=== PATIENT | female | born 1960 ===

== ENCOUNTER 2016-11-18 01:51 | Emergency (ER) | payer MEDICAID ==
[2016-11-18 01:58] VITALS: TEMP 98.4
--- NOTE | 2016-11-18 02:18 | ED PDOC ---
HPI: Hypertension/Hypotension Chief Complaint (Provider): High Blood Pressure History Per: Patient History/Exam Limitations: no limitations Onset/Duration Of Symptoms: Hrs (1 hour) Current Symptoms Are (Timing): Better Associated Symptoms: Dizziness, Other (palpitations lasting "few seconds"). denies: Chest Pain, Dyspnea (described as being lightheaded) Severity: None Exacerbating Factor(s): Pos: None Additional Complaint(s): Pt. here today complaining of HTN. PtTierney andrade was diagnosed with HTN 1 week ago by her PMD Dr. Dotson and was started on Metoprolol ER 25mg once daily which she took this morning. PtTierney andrade was watching television at 1:00am at home and felt lightheaded for a few seconds with palpitations. Pt. raymond then took her blood pressure and it was elevated at home with a reading of 185 systolic. Pt. subsequently woke up and called EMS and was transported to [facility]. Pt. at this time raymond feels better and lightheadedness has resolved but feels her blood pressure is still elevated. Pt. does report eating a salty tuna salad at 4p.m. <Sotero Mendoza - Last Filed: 11/18/16 03:06> <Shant Frazier - Last Filed: 11/18/16 05:28> Time Seen by Provider: 11/18/16 01:58 Chief Complaint (Nursing): High Blood Pressure Supervising Attending Note - Attestation: I have personally seen and examined this patient.: Yes I have fully participated in the care of the patient.: Yes I have reviewed all pertinent clinical information, including history, physical exam and plan: Yes <Shant Frazier - Last Filed: 11/18/16 05:28> Past Medical History Vital Signs: Last Vital Signs Temp 98.4 F 11/18/16 01:56 Pulse 74 11/18/16 01:56 Resp 20 11/18/16 01:56 BP 161/88 H 11/18/16 01:56 Pulse Ox 100 11/18/16 01:56 - Medical History PMH: HTN - Surgical History Surgical History: Appendectomy, - Family History Family History: States: CAD (Father ) - Living Arrangements Living Arrangements: Other (with ) - Social History Current smoker - smoking cessation education provided: No Alcohol: None Drugs: Denies <Sotero Mendoza - Last Filed: 11/18/16 03:06> Vital Signs: Last Vital Signs Temp 98.4 F 11/18/16 01:56 Pulse 71 11/18/16 03:06 Resp 14 11/18/16 03:02 BP 142/85 11/18/16 03:02 Pulse Ox 100 11/18/16 03:06 <Shant Frazier - Last Filed: 11/18/16 05:28> - Home Medications Home Medications: Ambulatory Orders Medication Instructions Recorded Metoprolol Succinate 11/18/16 - Allergies Allergies/Adverse Reactions: Allergies Allergy/AdvReac Type Severity Reaction Status Date / Time No Known Allergies Allergy Verified 05/29/14 08:37 Review of Systems Constitutional: Negative for: Fever, Chills Eyes: Negative for: Pain, Vision Change ENT: Negative for: Ear Pain, Ear Discharge Cardiovascular: Positive for: Palpitations, Light Headedness. Negative for: Chest Pain, Orthopnea, Paroxysmal Noc. Dyspnea, Edema Respiratory: Negative for: Cough, Shortness of Breath, Hemoptysis Gastrointestinal: Negative for: Nausea, Vomiting, Abdominal Pain Musculoskeletal: Negative for: Neck Pain, Shoulder Pain, Arm Pain Skin: Negative for: Rash, Lesions Neurological: Negative for: Weakness, Numbness, Incoordination, Change in Speech Psych: Negative for: Anxiety, Depression <Sotero Mendoza - Last Filed: 11/18/16 03:06> Physical Exam - Reviewed Vital Signs Reviewed: Yes - Physical Exam Appears: Positive for: Non-toxic, No Acute Distress Head Exam: Positive for: ATRAUMATIC, NORMOCEPHALIC Skin: Positive for: Normal Color, Warm, Dry Neck: Positive for: Normal, Supple Cardiovascular/Chest: Positive for: Regular Rate, Rhythm, Edema (Trace). Negative for: Murmur Respiratory: Positive for: Normal Breath Sounds. Negative for: Rales, Wheezing Gastrointestinal/Abdominal: Positive for: Soft. Negative for: Tenderness Extremity: Positive for: Capillary Refill (2 seconds). Negative for: Calf Tenderness Neurologic/Psych: Positive for: Alert, frame stripper II-XII, Oriented <Mendoza,Sotero - Last Filed: 11/18/16 03:06> - ECG ECG: Positive for: Interpreted By Me (Discussed with Dr. Frazier ) ECG Rhythm: Positive for: Sinus Rhythm Interpretation Of Abn EKG: Sinur Rhythm with non-prominent U-waves unchanged from previous EKG in July Rate: 71 O2 Sat by Pulse Oximetry: 100 - Progress ED Course And Treament: 55 y.o. female with HTN diagnosed 1 week ago with no acute changes on the EKG having took Metoprolol ER 25mg before arrival with no complaints of chest pain or short of breath with improving HTN on repeat BP reading. BP reading at 3:00 a.m. 142/85 with a HR of 65. Re-evaluation Time: 03:00 Condition: Improved <Sotero Mendoza - Last Filed: 11/18/16 03:06> Medical Decision Making Medical Decision Makin y.o. female with newly diagnosed HTN reports feeling lightheaded lasting a few seconds with a home blood pressure reading of 185 1 hour before arrival now resolved with no acute changes on EKG when compared to previous EKG. <Sotero Mendoza - Last Filed: 11/18/16 03:06> Disposition - Patient ED Disposition Is Patient to be Admitted: No Discussed With DrTierney: Shant Frazier - Disposition Disposition: Routine/Home Disposition Time: 03:05 <Sotero Mendoza - Last Filed: 11/18/16 03:06> <Shant Frazier - Last Filed: 11/18/16 05:28> - Clinical Impression Clinical Impression: Hypertension - Disposition Referrals: Bryanna Chacon DO [Family Provider] - Condition: FAIR Instructions: Hypertension (ED)
[2016-11-18 03:03] VITALS: BP 142/85; RESP 14
[2016-11-18 03:05] VITALS: PULSE 71; O2SAT 100
--- NOTE | 2016-11-19 10:29 | CARD ---
APPROVED REPORT EKG Measurement Heart [id number] ID [id number] <Conclusion> Normal sinus rhythm Nonspecific ST and T wave abnormality Abnormal ECG
== END 2016-11-18 03:40 | disposition home or self-care (01) ==
LOC: H.ER 01:51
DX: I10 Essential (primary) hypertension (principal)

== ENCOUNTER 2017-01-21 00:27 | Emergency (ER) | payer MEDICAID ==
[2017-01-21 01:02] VITALS: RESP 16; TEMP 98.6; O2SAT 99
--- NOTE | 2017-01-21 01:29 | ED PDOC ---
HPI: General Adult Time Seen by Provider: 01/21/17 00:50 Chief Complaint (Nursing): Dizziness/Lightheaded Chief Complaint (Provider): dizziness History Per: Patient History/Exam Limitations: no limitations Onset/Duration Of Symptoms: Mins Have you had recent travel within the past 21 days to any of the following countries: [place], [place], [place] or [place]?: No Current Symptoms Are (Timing): Better Additional Complaint(s): 56yo female with PMHx including HTN (takes Metoprolol 25mg once daily but missed dose this morning) presents to the ED with c/o dizziness and left arm feeling "awkward." Patient states she noticed her bp to be in the 150s systolic and panicked. At present patient feels better but still a little dizzy. Denies abdominal pain, SOB, chest pain, fever, chills. Past Medical History Reviewed: Historical Data, Nursing Documentation, Vital Signs Vital Signs: Last Vital Signs Temp 98.6 F 01/21/17 00:54 Pulse 55 L 01/21/17 01:46 Resp 16 01/21/17 00:54 BP 134/84 01/21/17 01:46 Pulse Ox 99 01/21/17 03:04 - Medical History PMH: HTN - Surgical History Surgical History: Appendectomy, Cholecystectomy, - Family History Family History: States: CAD (Father ) - Social History Current smoker - smoking cessation education provided: No Alcohol: None Drugs: Denies - Home Medications Home Medications: Ambulatory Orders Medication Instructions Recorded Metoprolol Succinate 11/18/16 - Allergies Allergies/Adverse Reactions: Allergies Allergy/AdvReac Type Severity Reaction Status Date / Time No Known Allergies Allergy Verified 05/29/14 08:37 Review of Systems ROS Statement: Except As Marked, All Systems Reviewed And Found Negative Constitutional: Negative for: Fever, Chills Cardiovascular: Negative for: Chest Pain Respiratory: Negative for: Shortness of Breath Gastrointestinal: Negative for: Abdominal Pain Musculoskeletal: Positive for: Other (left arm feeling "awkward" ) Neurological: Positive for: Dizziness Physical Exam - Reviewed Nursing Documentation Reviewed: Yes Vital Signs Reviewed: Yes - Physical Exam Appears: Positive for: Well, No Acute Distress Head Exam: Positive for: ATRAUMATIC, NORMAL INSPECTION, NORMOCEPHALIC Skin: Positive for: Normal Color, Warm, Dry ENT: Positive for: Normal ENT Inspection Neck: Positive for: Normal, Painless ROM, Supple Cardiovascular/Chest: Positive for: Regular Rate, Rhythm. Negative for: Murmur , Tachycardia Respiratory: Positive for: Normal Breath Sounds. Negative for: Wheezing, Respiratory Distress Gastrointestinal/Abdominal: Positive for: Normal Exam, Soft. Negative for: Tenderness Back: Positive for: Normal Inspection. Negative for: L CVA Tenderness, R CVA Tenderness Extremity: Positive for: Normal ROM. Negative for: Deformity, Swelling Neurologic/Psych: Positive for: Alert, sales floor team leader II-XII (intact ), Oriented. Negative for: Motor/Sensory Deficits, Aphasia, Facial Droop - Laboratory Results Result Diagrams: 01/21/17 01:30 01/21/17 01:30 - ECG ECG: Positive for: Interpreted By Me, Viewed By Me ECG Rhythm: Positive for: Sinus Bradycardia (at 51 bpm, no ST elevation ) O2 Sat by Pulse Oximetry: 99 Pulse Ox Interpretation: Normal (RA) Medical Decision Making Medical Decision Makin: Impression: dizziness rule out STEMI, rule out intracrail pathology Plan: CT head Labs EKG reassess 0249: CT head impression: 1. No acute intracranial abnormality. 0258: Labs reviewed, WNL. BP has improved. Patient stable for d/c. Advised to follow up with her primary doctor tomorrow and return to the ED with any worsening or concerning symptoms. Dx is dizziness and HTN. Scribe Attestation: Documented by Nils Medina acting as a scribe for Maida Paredes MD. Provider Scribe Attestation: All medical record entries made by the Scribe were at my direction and personally dictated by me. I have reviewed the chart and agree that the record accurately reflects my personal performance of the history, physical exam, medical decision making, and the department course for this patient. I have also personally directed, reviewed, and agree with the discharge instructions and disposition. Disposition - Clinical Impression Clinical Impression: Dizziness, Hypertension - Patient ED Disposition Is Patient to be Admitted: No Counseled Patient/Family Regarding: Studies Performed, Diagnosis, Need For Followup - Disposition Referrals: Bryanna Chacon DO [Primary Care Provider] - Disposition: Routine/Home Disposition Time: 02:45 Condition: IMPROVED Additional Instructions: follow up with your primary doctor tomorrow return to the ED with any worsening or concerning symptoms Instructions: Hypertension (ED), Dizziness (ED)
[2017-01-21 01:46] LABS: BASO # 0.1 K/uL (0.0-0.2); BASO % 0.6 % (0.0-2.0); EOS # 0.2 K/uL (0.0-0.7); HEMATOCRIT 38.5 % (34.0-47.0); LYMPH # 3.3 K/uL (1.0-4.3); LYMPH % 37.2 % (20.0-40.0); MEAN CELL VOLUME 87.9 fl (81.0-99.0); MEAN CORPUSCULAR HEMOGLOBIN 29.7 pg (27.0-31.0); MEAN CORPUSCULAR HGB CONC 33.8 g/dL (33.0-37.0); MONO # 0.6 K/uL (0.0-0.8); MONO % 7.3 % (0.0-10.0); NEUT # 4.7 K/uL (1.8-7.0); NEUT % 52.9 % (50.0-75.0); NRBC % 0.1 % (0.0-0.0); RED CELL DISTRIBUTION WIDTH 13.9 % (11.5-14.5); WHITE BLOOD COUNT 8.9 K/uL (4.8-10.8)
[2017-01-21 01:47] VITALS: BP 134/84; PULSE 55
[2017-01-21 01:57] LABS: ALB/GLOB RATIO 1.3 (1.0-2.1); ALKALINE PHOSPHATASE 109 U/L (38-126); ALT/SGPT 41 U/L (9-52); AST/SGOT 24 U/L (14-36); BILIRUBIN,TOTAL 0.3 mg/dl (0.2-1.3); BLOOD UREA NITROGEN 12 mg/dl (7-17); CALCIUM 9.1 mg/dL (8.4-10.2); CARBON DIOXIDE 28 mmol/L (22-30); CHLORIDE 107 mmol/L (98-107); GFR AFRICAN-AMERICAN > 60; GLUCOSE,RANDOM 103 mg/dL (65-105); POTASSIUM 3.9 MMOL/L (3.6-5.0); SODIUM 144 mmol/l (132-148); TOTAL PROTEIN 7.6 G/DL (6.3-8.2)
--- NOTE | 2017-01-21 02:49 | CT ---
EXAM: CT Head Without Intravenous Contrast CLINICAL HISTORY: 56 years old, female; Pain; Headache TECHNIQUE: Axial computed tomography images of the head/brain without intravenous contrast. This CT exam was performed using one or more of the following dose reduction techniques: automated exposure control, adjustment of the mA and/or kV according to patient size, and/or use of iterative reconstruction technique. Coronal and sagittal reformatted images were created and reviewed. COMPARISON: Brain: Mild atrophy. FINDINGS: Brain: No intracranial hemorrhage. No mass. No definite edema. Ventricles: No hydrocephalus. Bones/joints: No acute fracture. Soft tissues: Unremarkable. Sinuses: No acute sinusitis. Mastoid air cells: No mastoid effusion. Orbits: Unremarkable as visualized. IMPRESSION: 1. No acute intracranial abnormality. 2. Incidental/non-acute findings are described above.
--- NOTE | 2017-01-21 19:21 | CARD ---
APPROVED REPORT EKG Measurement Heart [id number] <Conclusion> Sinus bradycardia Nonspecific ST abnormality Abnormal ECG
== END 2017-01-21 03:20 | disposition home or self-care (01) ==
LOC: H.ER 00:27
DX: R42 Dizziness and giddiness (principal); I10 Essential (primary) hypertension

== ENCOUNTER 2017-10-21 10:11 | Inpatient (IN) | payer MEDICAID ==
[2017-10-21 10:15] VITALS: BMI 29.0
[2017-10-21] MEDS ORDERED: Sodium Chloride 0.9% 1,000 ML IV SCH (11:00)
--- NOTE | 2017-10-21 11:01 | ED PDOC ---
HPI:STROKE - Time Time: 10:58 - Historian Historian: Patient - Onset Date: 10/21/17 Time: 09:00 - Notes: Notes:: Pt states she was at doctor's office with Mother when she began to feel lightheadedness, pressure in epigastrium, SOB, nausea and weakness in L arm and L leg, tried to walk around to feel better, able to ambulate. Denies GARNICA, visual changes, CP. NIHSS Stroke Scale - Date/Time Evaluation Performed Date Performed: 10/21/17 Time Performed: 10:55 When Was NIHSS Performed: Code Stroke - How Severe is the Stroke Level of Consciousness: 0=Alert LOC to Questions: 0=Both comments correct LOC to commands: 0=Obeys both correctly Best Gaze: 0=Normal Visual: 0=No visual loss Facial: 0=Normal Motor Arm - Left: 0=No drift Motor Arm - Right: 0=No drift Motor Leg - Left: 0=No drift Motor Leg - Right: 0=No drift Limb Ataxia: 0=Absent Sensory: 1=Mild to moderate loss Best Language: 0=No aphasia Dysarthia: 0=Normal articulation Extinction & Inattention (Neglect): 0=Normal, no object Score: 1 rTPA Inclusion/Exclusion - Refusal of Treatment Patient Refused Treatment: No - Inclusion Criteria for Altepase Patient is 18 years or Older: Yes The Clinical Diagnosis of Ischemic Stroke That is Causing a Potentially Disabling Neurological Deficit: Yes Time of Onset is Well Established to be Less Than 270 Minute Before Treatment Would Begin: Yes Risk/Benefit Discussed With Patient/Family Member Present: Yes - Exclusion Criteria for Altepase Uncontrolled Hypertension at Time of Treatment (Systolic BP above 185 or Diastolic BP above 110 mmHg): No Active Internal Bleeding: No Evidence of an Intracranial Hemorrhage: No Evidence of Major Acute Infarct With Signs Greater Than 1/3 MCA Territory: No Suspicion of Subarachnoid Hemorrhage on Pretreatment Evaluation Even if CT Head Negative For Hemorrhage: No - Warning to TPA With Conditions Following Conditions Weighed Against Anticipated Benefit: No Past Medical History Reviewed: Nursing Documentation, Vital Signs Vital Signs: Last Vital Signs Temp 98.1 F 10/21/17 10:15 Pulse 84 10/21/17 10:15 Resp 17 10/21/17 10:15 BP 165/93 H 10/21/17 10:15 Pulse Ox 100 10/21/17 10:15 - Medical History PMH: HTN - Surgical History Surgical History: Appendectomy, Cholecystectomy, - Family History Family History: States: Unknown Family Hx, CAD (Father ) - Social History Current smoker - smoking cessation education provided: No Alcohol: None - Home Medications Home Medications: Ambulatory Orders Medication Instructions Recorded Losartan/Hydrochlorothiazide 1 tab PO DAILY 10/21/17 [Losartan-Hctz 50-12.5 mg Tab] - Allergies Allergies/Adverse Reactions: Allergies Allergy/AdvReac Type Severity Reaction Status Date / Time No Known Allergies Allergy Verified 05/29/14 08:37 Review of Systems Constitutional: Negative for: Fever, Chills Eyes: Negative for: Vision Change Cardiovascular: Negative for: Chest Pain, Palpitations Respiratory: Positive for: Shortness of Breath. Negative for: Cough Gastrointestinal: Positive for: Nausea, Abdominal Pain. Negative for: Vomiting , Diarrhea Genitourinary Female: Negative for: Dysuria, Hematuria Musculoskeletal: Negative for: Neck Pain, Back Pain Skin: Negative for: Rash Neurological: Positive for: Weakness, Dizziness. Negative for: Numbness, Incoordination, Change in Speech, Confusion, Seizures, Altered Mental Status, Headache Physical Exam - Reviewed Nursing Documentation Reviewed: Yes Vital Signs Reviewed: Yes - Physical Exam Appears: Positive for: Well, No Acute Distress Head Exam: Positive for: ATRAUMATIC, NORMAL INSPECTION Skin: Positive for: Normal Color, Warm, Dry Eye Exam: Positive for: Normal appearance, EOMI, PERRL Neck: Positive for: Normal, Painless ROM, Supple Cardiovascular/Chest: Positive for: Regular Rate, Rhythm Respiratory: Positive for: Normal Breath Sounds. Negative for: Rales, Rhonchi, Wheezing Gastrointestinal/Abdominal: Positive for: Normal Exam, Bowel Sounds, Soft. Negative for: Tenderness Extremity: Positive for: Normal ROM Neurologic/Psych: Positive for: Alert, commercial lending assistant II-XII, Oriented, Cerebellar Tests ( WNL). Negative for: Motor/Sensory Deficits, Aphasia, Facial Droop - Laboratory Results Result Diagrams: 10/21/17 11:35 10/21/17 11:35 - ECG Interpretation Of ECG: NSR @ 65, no ST-T changes. O2 Sat by Pulse Oximetry: 100 Pulse Ox Interpretation: Normal - Radiology X-Ray: Interpreted by Fl X-Ray Interpretation: No Acute Disease - Core Measure Core Measure Indicators: Code Stroke - Critical Care Total Time (In Min): 60 Medical Decision Making Medical Decision Makin yo female with lightheadedness and L sided weakness. - code stroke - labs - EKG - CXR - CT head 11:15 [address] head report from Dr. Aldrich. Accession No. : [id number] Patient Name / ID : SILVANA KNUTSON / [id number] Exam Date : 10/21/2017 11:00:55 ( Approved ) Study Comment : Sex / Age : F / 56Y Creator : Andrea Jade MD Dictator : Andrea Jade MD Toll Test Worker : Conduit Helper : Andrea Jade MD Approver2 : Report Date : 10/21/2017 11:16:27 My Comment : PROCEDURE: CT HEAD WITHOUT CONTRAST. HISTORY: code stroke COMPARISON: Unenhanced head CT 01/21/2017 TECHNIQUE: Axial computed tomography images were obtained through the head/brain without intravenous contrast. Radiation dose: Total exam DLP = 885.55 mGy-cm. This CT exam was performed using one or more of the following dose reduction techniques: Automated exposure control, adjustment of the mA and/or kV according to patient size, and/or use of iterative reconstruction technique. FINDINGS: HEMORRHAGE: No intracranial hemorrhage. BRAIN: Normal merino-white matter differentiation and density are appreciated throughout the cerebrum and cerebellum with the brainstem appearing unremarkable as well. There is no mass effect. There is no suspicious extra-axial fluid collection and the midline brain anatomy appears diffusely unremarkable. VENTRICLES: Unremarkable. No hydrocephalus. CALVARIUM: Unremarkable. PARANASAL SINUSES: Unremarkable as visualized. No significant inflammatory changes. MASTOID AIR CELLS: Unremarkable as visualized. No inflammatory changes. OTHER FINDINGS: None. IMPRESSION: Unremarkable unenhanced head CT without significant interval change greater prior CT 01/21/2017. Follow up CT or MRI are available as clinically warranted. 11:[address] Herrera via telemonitor. 11:50 tPA administered. Disposition - Clinical Impression Clinical Impression: CVA (cerebral vascular accident), Received intravenous tissue plasminogen activator (tPA) in emergency department - Patient ED Disposition Is Patient to be Admitted: Yes - Disposition Disposition Time: 12:18 Condition: SERIOUS Forms: [facility] (Irish) - Pt Status Changed To: Hospital Disposition Of: Inpatient - Admit Certification Admit to Inpatient:: After my assessment, the patient will require hospitalization for at least two midnights. This is because of the severity of symptoms shown, intensity of services needed, and/or the medical risk in this patient being treated as an outpatient. - POA Present On Arrival: None
--- NOTE | 2017-10-21 11:18 | CT ---
PROCEDURE: CT HEAD WITHOUT CONTRAST. HISTORY: code stroke COMPARISON: Unenhanced head CT 01/21/2017 TECHNIQUE: Axial computed tomography images were obtained through the head/brain without intravenous contrast. Radiation dose: Total exam DLP = 885.55 mGy-cm. This CT exam was performed using one or more of the following dose reduction techniques: Automated exposure control, adjustment of the mA and/or kV according to patient size, and/or use of iterative reconstruction technique. FINDINGS: HEMORRHAGE: No intracranial hemorrhage. BRAIN: Normal merino-white matter differentiation and density are appreciated throughout the cerebrum and cerebellum with the brainstem appearing unremarkable as well. There is no mass effect. There is no suspicious extra-axial fluid collection and the midline brain anatomy appears diffusely unremarkable. VENTRICLES: Unremarkable. No hydrocephalus. CALVARIUM: Unremarkable. PARANASAL SINUSES: Unremarkable as visualized. No significant inflammatory changes. MASTOID AIR CELLS: Unremarkable as visualized. No inflammatory changes. OTHER FINDINGS: None. IMPRESSION: Unremarkable unenhanced head CT without significant interval change greater prior CT 01/21/2017. Follow up CT or MRI are available as clinically warranted.
[2017-10-21 11:39] LABS: BASO % 0.4 % (0.0-2.0); EOS # 0.1 K/uL (0.0-0.7); EOS % 1.3 % (0.0-4.0); HEMOGLOBIN 13.3 g/dL (12.0-16.0); LYMPH # 3.5 K/uL (1.0-4.3); LYMPH % 42.4 % (20.0-40.0); MEAN CELL VOLUME 89.7 fl (81.0-99.0); MEAN CORPUSCULAR HEMOGLOBIN 30.4 pg (27.0-31.0); MEAN CORPUSCULAR HGB CONC 33.8 g/dL (33.0-37.0); MEAN PLATELET VOLUME 6.7 fl (7.2-11.7); MONO # 0.5 K/uL (0.0-0.8); MONO % 5.5 % (0.0-10.0); NEUT # 4.2 K/uL (1.8-7.0); NEUT % 50.4 % (50.0-75.0); NRBC % 0.1 % (0.0-0.0); RBC 4.39 Mil/uL (3.80-5.20); WHITE BLOOD COUNT 8.2 K/uL (4.8-10.8)
[2017-10-21 11:52] LABS: ALB/GLOB RATIO 1.2 (1.0-2.1); ALBUMIN 4.4 g/dL (3.5-5.0); ALT/SGPT 39 U/L (9-52); AST/SGOT 26 U/L (14-36); BLOOD UREA NITROGEN 19 mg/dl (7-17); CALCIUM 9.6 mg/dL (8.4-10.2); GFR AFRICAN-AMERICAN > 60; GFR NON-AFRICAN AMERICAN > 60; HDL CHOLESTEROL 56 MG/DL (30-70)
--- NOTE | 2017-10-21 11:55 | CP.PCM.CON ---
History of Present Illness - History of Present Illness History of Present Illness: Tele-Stroke Consult Note: This is a telehealth visit and the patient is being seen via the [employer] bi-directional video conference system. Mrs. Nelson is a 56-year-old woman with a past medical history of hypertension, who presented to the ED after she developed the sudden onset of left side numbness and weakness at around 9 AM. She states that her symptoms began with lightheadedness, dizziness and subsequently evolved to left side numbness. There was no nausea, vomiting, gait instability or loss of consciousness. She denied visual deficits. When I saw her, the NIHSS was 3. Review of Systems - Review of Systems All systems: reviewed and no additional remarkable complaints except Past Patient History - Infectious Disease Hx of Infectious Diseases: None - Past Social History Alcohol: None - CARDIAC Hx Hypertension: Yes - PSYCHIATRIC Hx Substance Use: No - SURGICAL HISTORY Hx Appendectomy: Yes Hx Cholecystectomy: Yes - ANESTHESIA Hx Anesthesia: No Meds Allergies/Adverse Reactions: Allergies Allergy/AdvReac Type Severity Reaction Status Date / Time No Known Allergies Allergy Verified 05/29/14 08:37 - Medications Medications: Current Medications Sodium Chloride (Sodium Chloride 0.9%) 1,000 mls @ 100 mls/hr IV .Q10H ROBERT Physical Exam - Neurological Exam Neurological exam: Abnormal Gait, Alert, CN II-XII Intact, Motor Sensory Deficit , Oriented x3 Additional comments: Left facial numbness, left arm numbness, left arm and leg drift. No speech difficulty, no visual difficulty; NIHSS =3 Results - Vital Signs Recent Vital Signs: Last Vital Signs Temp 98 F 10/21/17 11:13 Pulse 85 10/21/17 11:13 Resp 19 10/21/17 11:13 BP 147/84 10/21/17 11:15 Pulse Ox 100 10/21/17 11:15 - Labs Result Diagrams: 10/21/17 11:35 Labs: Laboratory Results - last 24 hr 10/21/17 10/21/17 10:59 11:35 WBC 8.2 RBC 4.39 Hgb 13.3 Hct 39.4 MCV 89.7 MCH 30.4 MCHC 33.8 RDW 13.0 Plt Count 304 MPV 6.7 L Neut % (Auto) 50.4 Lymph % (Auto) 42.4 H [place] % (Auto) 5.5 Eos % (Auto) 1.3 Baso % (Auto) 0.4 Neut # (Auto) 4.2 Lymph # (Auto) 3.5 [place] # (Auto) 0.5 Eos # (Auto) 0.1 Baso # (Auto) 0.0 POC Glucose (mg/dL) 117 H - Imaging and Cardiology CT scan - head Status: Image reviewed by me, Report reviewed by me Additional comment: No acute findings noted. Assessment & Plan (1) Ischemic stroke Assessment and Plan: The patient may be having a subcortical acute ischemic stroke on the right basal ganglia/thalamic region. I recommend IV tPA since she is within the time window and does not have any contra-indications. In addition, I recommend the followin. ICU and follow post-tPA protocol 2. Bedrest 3. NPO 4. No antiplatelet agents or anticoagulants until further notice 5. Goal BP is less than 180/105 mm Hg 6. Repeat non-constrast CT head 24 hours after IV tPA 7. MRI brain/ MRA head/neck non contrast 8. Echocardiogram with bubble study 9. Check lipid panel, HbA1c, B12, folate, vitamin D and TSH 10. PT/OT rehab eval 11. Speech and swallow evaluation 13. Fluids with NS at 100 mL/hr Thank you. Status: Acute Priority: High
[2017-10-21 12:01] LABS: PARTIAL THROMBOPLASTIN TIME 29.2 Seconds (25.6-37.1); PROTHROMBIN TIME 10.5 Seconds (9.8-13.1)
[2017-10-21 12:03] LABS: LDL CHOLESTEROL 117 mg/dL (0-129)
--- NOTE | 2017-10-21 12:09 | RAD ---
HISTORY: Code Stroke COMPARISON: 08/12/2016 FINDINGS: LUNGS: No active pulmonary disease. PLEURA: No significant pleural effusion identified, no pneumothorax apparent. CARDIOVASCULAR: Normal. OSSEOUS STRUCTURES: No significant abnormalities. VISUALIZED UPPER ABDOMEN: Normal. OTHER FINDINGS: None. IMPRESSION: No active disease. No significant interval change compared to the prior examination(s).
[2017-10-21] MEDS ORDERED: Iodixanol 320 MG/ML 100 ML BOTTLE IV ONE (12:12)
[2017-10-21] MEDS ORDERED: Sodium Chloride 0.9% 100 ML ONE (12:12)
--- NOTE | 2017-10-21 14:06 | CT ---
PROCEDURE: CT Angiography of the Brain. HISTORY: L sided weakness, s/p tPA COMPARISON: None available. TECHNIQUE: CT angiography of the intracranial arteries was performed. Coronal and sagittal maximum intensity projection reformated images were generated. Contrast Dose: Visipaque 320, 99 cc Radiation dose:Total exam DLP = 558. 80 mGy-cm. This CT exam was performed using one or more of the following dose reduction techniques: Automated exposure control, adjustment of the mA and/or kV according to patient size, and/or use of iterative reconstruction technique. FINDINGS: INTERNAL CEREBRAL ARTERIES: Unremarkable. The skull base, petrous, cavernous and supraclinoid segments are bilaterally widely patent. ANTERIOR CEREBRAL ARTERIES: Unremarkable. A1 and A2 segments are widely patent. Smaller distal branches unremarkable, as visualized. MIDDLE CEREBRAL ARTERIES: Unremarkable. M1 and M2 segments are widely patent. Perisylvian branches grossly symmetric. POSTERIOR CIRCULATION: Basilar Artery: Unremarkable. Distal Vertebral Arteries: Unremarkable. Posterior Cerebral Arteries: Unremarkable. Posterior Inferior Cerebellar Arteries: Unremarkable. ANEURYSM/ VASCULAR MALFORMATIONS: None. OTHER FINDINGS: None. IMPRESSION: Unremarkable CT Angiography of the Brain.
--- NOTE | 2017-10-21 18:43 | CP.CCUPN ---
CCU Subjective - Physician Review Events Since Last Encounter (Free Text): 10/21/17 18:41 The patient was Seen/interviewed and examined by me at the bedside during ICU round, Medical records reviewed and Management issues were discussed and formulated with the house staff. 56 Years old Female with PMHx of HTN Pt states she was at doctor's office with Mother when she began to feel lightheadedness, pressure in epigastrium, SOB, nausea and weakness in L arm and L leg, tried to walk around to feel better, able to ambulate. On Exam found to have Left facial numbness, left arm numbness, left arm and leg drift. No headaches, vision changes, vertigo, double vision, dysphagia or trouble with word finding. NIHSS =3 Code stroke called and Pt received TPA CCU Objective - Vital Signs / Intake & Output Vital Signs (Last 4 hours): Vital Signs Temp Pulse Resp BP Pulse Ox 10/21/17 18:28 97.8 F 90 20 123/78 98 10/21/17 17:54 87 20 128/85 98 10/21/17 17:33 97.6 F 85 20 116/76 99 10/21/17 17:08 97.6 F 87 19 115/78 98 10/21/17 16:46 91 H 19 121/74 99 10/21/17 16:21 88 20 117/82 98 10/21/17 16:03 96.7 F L 96 H 18 120/74 99 10/21/17 15:45 102 H 20 120/76 10/21/17 15:44 96.7 F L 101 H 20 120/76 99 10/21/17 15:20 97.4 F L 102 H 20 114/72 99 10/21/17 15:00 98.3 F 104 H 19 122/74 97 10/21/17 14:50 99 H 20 123/80 99 Intake and Output (Last 8hrs): Intake & Output 10/21/17 10/21/17 10/21/17 06:59 14:59 22:59 Weight 154 lb - Physical Exam Head: Positive for: Atraumatic, Normocephalic Pupils: Positive for: PERRL Extroacular Muscles: Positive for: EOMI Conjunctiva: Positive for: Normal Ears: Positive for: Normal Mouth: Positive for: Moist Mucous Membranes Pharnyx: Positive for: Normal Respiratory/Chest: Positive for: Clear to Auscultation, Good Air Exchange Cardiovascular: Positive for: Regular Rate and Rhythm, Normal S1, S2. Negative for: Murmurs, Irregular Rhythm Psychiatric: Positive for: Alert, Oriented x 3, Other (Left facial numbness, left arm numbness, left arm and leg drift. ) - Medications Active Medications: Active Medications Generic Name Dose Route Start Last Admin Trade Name Freq PRN Reason Stop Dose Admin Sodium Chloride 1,000 mls @ 100 mls/hr 10/21/17 11:00 10/21/17 11:55 Sodium Chloride 0.9% IV 100 mls/hr .Q10H ROBERT Administration - Patient Studies Lab Studies: Lab Studies 10/21/17 10/21/17 10/21/17 Range/Units 11:35 11:35 11:35 WBC 8.2 (4.8-10.8) K/uL RBC 4.39 (3.80-5.20) Mil/uL Hgb 13.3 (12.0-16.0) g/dL Hct 39.4 (34.0-47.0) % MCV 89.7 (81.0-99.0) fl MCH 30.4 (27.0-31.0) pg MCHC 33.8 (33.0-37.0) g/dL RDW 13.0 (11.5-14.5) % Plt Count 304 (130-400) K/uL MPV 6.7 L (7.2-11.7) fl Neut % (Auto) 50.4 (50.0-75.0) % Lymph % (Auto) 42.4 H (20.0-40.0) % [place] % (Auto) 5.5 (0.0-10.0) % Eos % (Auto) 1.3 (0.0-4.0) % Baso % (Auto) 0.4 (0.0-2.0) % Neut # (Auto) 4.2 (1.8-7.0) K/uL Lymph # (Auto) 3.5 (1.0-4.3) K/uL [place] # (Auto) 0.5 (0.0-0.8) K/uL Eos # (Auto) 0.1 (0.0-0.7) K/uL Baso # (Auto) 0.0 (0.0-0.2) K/uL PT 10.5 (9.8-13.1) Seconds INR 1.0 (0.9-1.2) APTT 29.2 (25.6-37.1) Seconds D-Dimer, Quantitative 79 (0-230) ng/mlDDU Sodium 144 (132-148) mmol/l Potassium 3.7 (3.6-5.0) MMOL/L Chloride 103 (98-107) mmol/L Carbon Dioxide 27 (22-30) mmol/L Anion Gap 18 (10-20) BUN 19 H (7-17) mg/dl Creatinine 0.7 (0.7-1.2) mg/dl Est GFR ( Amer) > 60 Est GFR (Non-Af Amer) > 60 POC Glucose (mg/dL) (65-110) mg/dL Random Glucose 115 H (65-105) mg/dL Calcium 9.6 (8.4-10.2) mg/dL Total Bilirubin 0.4 (0.2-1.3) mg/dl AST 26 (14-36) U/L ALT 39 (9-52) U/L Alkaline Phosphatase 83 (38-126) U/L Troponin I < 0.0120 (0.00-0.120) ng/mL Total Protein 8.2 (6.3-8.2) G/DL Albumin 4.4 (3.5-5.0) g/dL Globulin 3.7 (2.2-3.9) gm/dL Albumin/Globulin Ratio 1.2 (1.0-2.1) Triglycerides 79 (0-149) mg/DL Cholesterol 214 H (0-199) mg/dL LDL Cholesterol Direct 117 (0-129) mg/dL HDL Cholesterol 56 (30-70) MG/DL 10/21/17 Range/Units 10:59 WBC (4.8-10.8) K/uL RBC (3.80-5.20) Mil/uL Hgb (12.0-16.0) g/dL Hct (34.0-47.0) % MCV (81.0-99.0) fl MCH (27.0-31.0) pg MCHC (33.0-37.0) g/dL RDW (11.5-14.5) % Plt Count (130-400) K/uL MPV (7.2-11.7) fl Neut % (Auto) (50.0-75.0) % Lymph % (Auto) (20.0-40.0) % [place] % (Auto) (0.0-10.0) % Eos % (Auto) (0.0-4.0) % Baso % (Auto) (0.0-2.0) % Neut # (Auto) (1.8-7.0) K/uL Lymph # (Auto) (1.0-4.3) K/uL [place] # (Auto) (0.0-0.8) K/uL Eos # (Auto) (0.0-0.7) K/uL Baso # (Auto) (0.0-0.2) K/uL PT (9.8-13.1) Seconds INR (0.9-1.2) APTT (25.6-37.1) Seconds D-Dimer, Quantitative (0-230) ng/mlDDU Sodium (132-148) mmol/l Potassium (3.6-5.0) MMOL/L Chloride (98-107) mmol/L Carbon Dioxide (22-30) mmol/L Anion Gap (10-20) BUN (7-17) mg/dl Creatinine (0.7-1.2) mg/dl Est GFR ( Amer) Est GFR (Non-Af Amer) POC Glucose (mg/dL) 117 H (65-110) mg/dL Random Glucose (65-105) mg/dL Calcium (8.4-10.2) mg/dL Total Bilirubin (0.2-1.3) mg/dl AST (14-36) U/L ALT (9-52) U/L Alkaline Phosphatase (38-126) U/L Troponin I (0.00-0.120) ng/mL Total Protein (6.3-8.2) G/DL Albumin (3.5-5.0) g/dL Globulin (2.2-3.9) gm/dL Albumin/Globulin Ratio (1.0-2.1) Triglycerides (0-149) mg/DL Cholesterol (0-199) mg/dL LDL Cholesterol Direct (0-129) mg/dL HDL Cholesterol (30-70) MG/DL Laboratory Results - last 24 hr 10/21/17 10/21/17 10/21/17 10:59 11:35 11:35 WBC 8.2 RBC 4.39 Hgb 13.3 Hct 39.4 MCV 89.7 MCH 30.4 MCHC 33.8 RDW 13.0 Plt Count 304 MPV 6.7 L Neut % (Auto) 50.4 Lymph % (Auto) 42.4 H [place] % (Auto) 5.5 Eos % (Auto) 1.3 Baso % (Auto) 0.4 Neut # (Auto) 4.2 Lymph # (Auto) 3.5 [place] # (Auto) 0.5 Eos # (Auto) 0.1 Baso # (Auto) 0.0 PT INR APTT D-Dimer, Quantitative Sodium 144 Potassium 3.7 Chloride 103 Carbon Dioxide 27 Anion Gap 18 BUN 19 H Creatinine 0.7 Est GFR ( Amer) > 60 Est GFR (Non-Af Amer) > 60 POC Glucose (mg/dL) 117 H Random Glucose 115 H Calcium 9.6 Total Bilirubin 0.4 AST 26 ALT 39 Alkaline Phosphatase 83 Troponin I < 0.0120 Total Protein 8.2 Albumin 4.4 Globulin 3.7 Albumin/Globulin Ratio 1.2 Triglycerides 79 Cholesterol 214 H LDL Cholesterol Direct 117 HDL Cholesterol 56 10/21/17 11:35 WBC RBC Hgb Hct MCV MCH MCHC RDW Plt Count MPV Neut % (Auto) Lymph % (Auto) [place] % (Auto) Eos % (Auto) Baso % (Auto) Neut # (Auto) Lymph # (Auto) [place] # (Auto) Eos # (Auto) Baso # (Auto) PT 10.5 INR 1.0 APTT 29.2 D-Dimer, Quantitative 79 Sodium Potassium Chloride Carbon Dioxide Anion Gap BUN Creatinine Est GFR ( Amer) Est GFR (Non-Af Amer) POC Glucose (mg/dL) Random Glucose Calcium Total Bilirubin AST ALT Alkaline Phosphatase Troponin I Total Protein Albumin Globulin Albumin/Globulin Ratio Triglycerides Cholesterol LDL Cholesterol Direct HDL Cholesterol EKG/Cardiology Studies: Cardiology / EKG Studies 10/21/17 10:57 ELECTROCARDIOGRAM Stat Comment: Mode Of Transportation: Reason For Exam: Code stroke Fingerstick Blood Sugar Results: 117 Review of Systems - Constitutional Constitutional: UN - Cardiovascular Cardiovascular: absent: As Per HPI, Acrocyanosis, Chest Pain, Chest Pain at Rest , Chest Pain with Activity, Claudication, Diaphoresis, Dyspnea, Dyspnea on Exertion, Edema, Irregular Heart Rhythm, Pain Radiating to Arm/Neck/Jaw, Leg Edema, Leg Ulcers, Lightheadedness, Orthopnea, Palpitations, Paroxysmal Nocturnal Dyspnea, Pedal Edema, Radiating Pain, Rapid Heart Rate, Slow Heart Rate, Syncope, Other, UNREMARKABLE - Respiratory Respiratory: absent: As Per HPI, Cough, Dyspnea, Hemoptysis, Dyspnea on Exertion , Wheezing, Snoring, Stridor, Pain on Inspiration, Chest Congestion, Excessive Mucous Production, Change in Mucous Color, Pain with Coughing, Other, UNREMARKABLE - Neurological Neurological: Abnormal Speech, Numbness, Focal Weakness, Other (Left facial numbness, left arm numbness, left arm and leg drift. ). absent: Abnormal Gait , Abnormal Hearing, Behavioral Changes, Convulsions, Headaches, Loss of Vision Critical Care Progress Note - Nutrition Nutrition: Nutrition Category Date Time Status Heart Healthy Diet [DIET] Diets 10/21/17 Lunch Active Assessment/Plan (1) CVA (cerebral vascular accident) Current Visit: Yes Status: Acute (2) Ischemic stroke Current Visit: Yes Status: Acute Priority: High (3) Received intravenous tissue plasminogen activator (tPA) in emergency department Current Visit: Yes Status: Acute (4) Hypertension Current Visit: No Status: Acute - Assessment and Plan (Free Text) Assessment: - Admit to ICU, Frequent Neuro check - allow permissive hypertension - NPO - Speech and swallow evaluation - PT/OT evaluation, may require MARIAM on d/c. - MRI brain acute stroke sequences (diffusion/FLAIR) - No AC or Atiplatelets S/P TPA - Telemetry monitoring - Check utox, A1c, lipid panel - Start atorvastatin 80 mg pending lipid panel
--- NOTE | 2017-10-21 22:00 | CARD ---
APPROVED REPORT EKG Measurement Heart [id number] <Conclusion> Normal sinus rhythm Normal ECG
[2017-10-22 05:43] LABS: ALB/GLOB RATIO 1.3 (1.0-2.1); ALBUMIN 3.8 g/dL (3.5-5.0); ALT/SGPT 33 U/L (9-52); AST/SGOT 21 U/L (14-36); BLOOD UREA NITROGEN 20 mg/dl (7-17); CALCIUM 8.7 mg/dL (8.4-10.2); GFR AFRICAN-AMERICAN > 60; GFR NON-AFRICAN AMERICAN > 60; HDL CHOLESTEROL 53 MG/DL (30-70)
[2017-10-22 05:54] LABS: LDL CHOLESTEROL 111 mg/dL (0-129)
[2017-10-22 05:56] LABS: T4 10.9 ug/dl (5.5-11.0)
[2017-10-22 06:05] LABS: HEMOGLOBIN 12.8 g/dL (12.0-16.0); MEAN CELL VOLUME 88.9 fl (81.0-99.0); MEAN CORPUSCULAR HEMOGLOBIN 31.3 pg (27.0-31.0); MEAN CORPUSCULAR HGB CONC 35.2 g/dL (33.0-37.0); RBC 4.09 Mil/uL (3.80-5.20); RED CELL DISTRIBUTION WIDTH 13.1 % (11.5-14.5); WHITE BLOOD COUNT 10.6 K/uL (4.8-10.8)
[2017-10-22 06:10] LABS: T3 1.25 nmol/L (1.49-2.60)
--- NOTE | 2017-10-22 13:08 | CP.PCM.HP ---
History of Present Illness - History of Present Illness History of Present Illness: CC: Left side weakness/numbness. 56 y/o F, Hx HTN, brought from her PMD office by EMS to ER [facility] [place], due to sudden onset of weaknesses on her L side (L arm, L leg), associated to lightheadedness, dizziness, SOB, Pt was walking in the area to feel better but with no relief. Worsening symptoms: Pt also c/o of pressure and burning sensation in the epigastrium area, associated to nausea, denied vomiting, diarrhea. While at ER, Pt had a code stroke, BP 185/110, Pt received IV TPA and after, Pt was admitted to ICU. Pt denied: Fever, chills, headache, LOC, syncope,palpitations, CP, cough, blurry vision, vomiting, diarrhea, urinary symptoms, sick contact, travel out of [facility]. PMHx: HTN, Gastritis, UTI, Gall Bladder Disease. CTA Head and Neck was unremarkable. Head CT: Unremarkable. EKG: Normal sinus rhythm. CXR: No active disease. Present on Admission - Present on Admission Any Indicators Present on Admission: No Review of Systems - Constitutional Constitutional: Weakness - EENT Eyes: Requires Corrective Lenses Ears: Other (negative) Nose/Mouth/Throat: Other (negative) - Cardiovascular Cardiovascular: Lightheadedness - Respiratory Respiratory: Dyspnea - Gastrointestinal Gastrointestinal: Abdominal Pain (epigastrium), Nausea - Genitourinary Genitourinary: Other (negative) - Musculoskeletal Musculoskeletal: Other (negative) - Integumentary Integumentary: Other (negative) - Neurological Neurological: Weakness - Psychiatric Psychiatric: Other (negative) - Endocrine Endocrine: Other (negative) - Hematologic/Lymphatic Hematologic: Other (negative) Past Patient History - Infectious Disease Hx of Infectious Diseases: None - Past Medical History & Family History Past Medical History?: Yes Pertinent Family History: Unknown. - Past Social History Smoking Status: Never Smoked Alcohol: None Drugs: Denies Home Situation {Lives}: With Family - CARDIAC Hx Cardiac Disorders: Yes Hx Hypertension: Yes - PULMONARY Hx Respiratory Disorders: No - NEUROLOGICAL Hx Neurological Disorder: No - HEENT Hx HEENT Problems: No - RENAL Hx Chronic Kidney Disease: No - ENDOCRINE/METABOLIC Hx Endocrine Disorders: No - HEMATOLOGICAL/ONCOLOGICAL Hx Blood Disorders: No Hx AIDS: No Hx Human Immunodeficiency Virus (HIV): No - INTEGUMENTARY Hx Dermatological Problems: No - MUSCULOSKELETAL/RHEUMATOLOGICAL Hx Musculoskeletal Disorders: No Hx Falls: No - GASTROINTESTINAL Hx Gastrointestinal Disorders: Yes Hx Gall Bladder Disease: Yes Hx Gastritis: Yes - GENITOURINARY/GYNECOLOGICAL Hx Genitourinary Disorders: Yes Hx Urinary Tract Infection: Yes - PSYCHIATRIC Hx Psychophysiologic Disorder: No Hx Substance Use: No - SURGICAL HISTORY Hx Surgeries: Yes Hx Appendectomy: Yes Hx Section: Yes Hx Cholecystectomy: Yes Hx Tonsillectomy: Yes - ANESTHESIA Hx Anesthesia: Yes Hx Anesthesia Reactions: No Hx Malignant Hyperthermia: No Has any member of the family had a problem w/ anesthesia?: No Meds Allergies/Adverse Reactions: Allergies Allergy/AdvReac Type Severity Reaction Status Date / Time No Known Allergies Allergy Verified 05/29/14 08:37 Physical Exam - Constitutional Appears: No Acute Distress - Head Exam Head Exam: NORMAL INSPECTION - Eye Exam Eye Exam: PERRL - ENT Exam ENT Exam: Normal Exam - Neck Exam Neck exam: Positive for: Normal Inspection - Respiratory Exam Respiratory Exam: Clear to Auscultation Bilateral - Cardiovascular Exam Cardiovascular Exam: REGULAR RHYTHM - GI/Abdominal Exam GI & Abdominal Exam: Normal Bowel Sounds, Soft - Extremities Exam Extremities exam: Positive for: normal inspection - Back Exam Back exam: NORMAL INSPECTION - Neurological Exam Neurological exam: Abnormal Gait, Alert, CN II-XII Intact, Oriented x3 Additional comments: L facial numbness, L arm numbness, L arm and leg drift. No speech/visual difficulty. - Psychiatric Exam Psychiatric exam: Normal Mood - Skin Skin Exam: Warm Results - Vital Signs Recent Vital Signs: Last Vital Signs Temp 98.4 F 10/22/17 12:00 Pulse 72 10/22/17 12:00 Resp 12 10/22/17 12:00 BP 117/77 10/22/17 12:00 Pulse Ox 95 10/22/17 12:00 reviewed Rocío - Labs Result Diagrams: 10/22/17 04:25 10/22/17 04:25 Labs: Laboratory Results - last 24 hr 10/21/17 10/22/17 10/22/17 11:35 04:25 04:25 WBC 10.6 RBC 4.09 Hgb 12.8 Hct 36.4 MCV 88.9 MCH 31.3 H MCHC 35.2 RDW 13.1 Plt Count 301 Sodium 146 Potassium 3.6 Chloride 106 Carbon Dioxide 27 Anion Gap 17 BUN 20 H Creatinine 0.7 Est GFR ( Amer) > 60 Est GFR (Non-Af Amer) > 60 Random Glucose 100 Hemoglobin A1c 5.8 Calcium 8.7 Total Bilirubin 0.6 AST 21 ALT 33 Alkaline Phosphatase 70 Total Protein 6.7 Albumin 3.8 Globulin 3.0 Albumin/Globulin Ratio 1.3 Triglycerides 103 D Cholesterol 200 H LDL Cholesterol Direct 111 HDL Cholesterol 53 Thyroxine (T4) 10.9 Total T3 1.25 L TSH 3rd Generation 1.89 reviewed J.P. - EKG Data EKG comments: reviewed J.P. - Impressions Impression: CTA Head and Neck: Reviewed J.P. - Imaging and Cardiology CT scan - head Status: Report reviewed by me (Rocío) Chest x-ray Status: Report reviewed by me (Rocío) Assessment & Plan (1) Ischemic stroke Status: Acute Priority: High (2) Received intravenous tissue plasminogen activator (tPA) in emergency department Status: Acute Priority: High (3) Hypertension Status: Chronic Priority: High - Assessment and Plan (Free Text) Plan: F/U CT Head from today. Monitor BP, Continue Lipitor, IV fluid, PT,OT speech and swallow eval. Neuro consult appreciated. - Date & Time Date: 10/22/17 Time: 11:00
--- NOTE | 2017-10-22 13:34 | CT ---
PROCEDURE: CT HEAD WITHOUT CONTRAST. HISTORY: s/p cva s/p tpa COMPARISON: CT head dated 10/21/2017. TECHNIQUE: Axial computed tomography images were obtained through the head/brain without intravenous contrast. Radiation dose: Total exam DLP = 899.2 mGy-cm. This CT exam was performed using one or more of the following dose reduction techniques: Automated exposure control, adjustment of the mA and/or kV according to patient size, and/or use of iterative reconstruction technique. FINDINGS: HEMORRHAGE: No intracranial hemorrhage. BRAIN: No mass effect or edema. No atrophy or chronic microvascular ischemic changes. VENTRICLES: Unremarkable. No hydrocephalus. CALVARIUM: Unremarkable. PARANASAL SINUSES: Unremarkable as visualized. No significant inflammatory changes. MASTOID AIR CELLS: Unremarkable as visualized. No inflammatory changes. OTHER FINDINGS: None. IMPRESSION: No acute intracranial pathology.
--- NOTE | 2017-10-22 15:48 | CP.CCUPN ---
CCU Subjective - Physician Review Events Since Last Encounter (Free Text): 10/22/17 15:41 no complaints. CCU Objective - Vital Signs / Intake & Output Vital Signs (Last 4 hours): Vital Signs Temp Pulse Resp BP Pulse Ox 10/22/17 15:00 98.7 F 79 12 106/75 97 10/22/17 14:00 98.7 F 87 20 115/74 98 10/22/17 13:00 98 F 83 17 115/74 98 10/22/17 12:00 98.4 F 72 12 117/77 95 Intake and Output (Last 8hrs): Intake & Output 10/22/17 10/22/17 10/22/17 06:59 14:59 22:59 Intake Total 240 Output Total 400 Balance -160 Intake: Oral 240 Output: Urine 400 Urine, Voided 400 Other: # Bowel Movements 1 - Physical Exam Head: Positive for: Atraumatic, Normocephalic Pupils: Positive for: PERRL Extroacular Muscles: Positive for: EOMI Conjunctiva: Positive for: Normal Ears: Positive for: Normal Mouth: Positive for: Moist Mucous Membranes Pharnyx: Positive for: Normal Respiratory/Chest: Positive for: Clear to Auscultation, Good Air Exchange Cardiovascular: Positive for: Regular Rate and Rhythm, Normal S1, S2. Negative for: Murmurs, Irregular Rhythm Neurological: Positive for: GCS=15, CN II-XII Intact, Motor Func Grossly Intact , Normal Sensory Function Psychiatric: Positive for: Alert, Oriented x 3 - Medications Active Medications: Active Medications Generic Name Dose Route Start Last Admin Trade Name Freq PRN Reason Stop Dose Admin Atorvastatin Calcium 80 mg 10/22/17 11:00 10/22/17 12:45 Lipitor PO 80 mg DAILY ROBERT Administration Sodium Chloride 1,000 mls @ 100 mls/hr 10/21/17 11:00 10/21/17 11:55 Sodium Chloride 0.9% IV 100 mls/hr .Q10H ROBERT Administration - Patient Studies Lab Studies: Lab Studies 10/22/17 10/22/17 10/21/17 Range/Units 04:25 04:25 11:35 WBC 10.6 (4.8-10.8) K/uL RBC 4.09 (3.80-5.20) Mil/uL Hgb 12.8 (12.0-16.0) g/dL Hct 36.4 (34.0-47.0) % MCV 88.9 (81.0-99.0) fl MCH 31.3 H (27.0-31.0) pg MCHC 35.2 (33.0-37.0) g/dL RDW 13.1 (11.5-14.5) % Plt Count 301 (130-400) K/uL Sodium 146 (132-148) mmol/l Potassium 3.6 (3.6-5.0) MMOL/L Chloride 106 (98-107) mmol/L Carbon Dioxide 27 (22-30) mmol/L Anion Gap 17 (10-20) BUN 20 H (7-17) mg/dl Creatinine 0.7 (0.7-1.2) mg/dl Est GFR ( Amer) > 60 Est GFR (Non-Af Amer) > 60 Random Glucose 100 (65-105) mg/dL Hemoglobin A1c 5.8 (4.2-6.5) % Calcium 8.7 (8.4-10.2) mg/dL Total Bilirubin 0.6 (0.2-1.3) mg/dl AST 21 (14-36) U/L ALT 33 (9-52) U/L Alkaline Phosphatase 70 (38-126) U/L Total Protein 6.7 (6.3-8.2) G/DL Albumin 3.8 (3.5-5.0) g/dL Globulin 3.0 (2.2-3.9) gm/dL Albumin/Globulin Ratio 1.3 (1.0-2.1) Triglycerides 103 D (0-149) mg/DL Cholesterol 200 H (0-199) mg/dL LDL Cholesterol Direct 111 (0-129) mg/dL HDL Cholesterol 53 (30-70) MG/DL Thyroxine (T4) 10.9 (5.5-11.0) ug/dl Total T3 1.25 L (1.49-2.60) nmol/L TSH 3rd Generation 1.89 (0.46-4.68) mIU/ML Laboratory Results - last 24 hr 10/21/17 10/22/17 10/22/17 11:35 04:25 04:25 WBC 10.6 RBC 4.09 Hgb 12.8 Hct 36.4 MCV 88.9 MCH 31.3 H MCHC 35.2 RDW 13.1 Plt Count 301 Sodium 146 Potassium 3.6 Chloride 106 Carbon Dioxide 27 Anion Gap 17 BUN 20 H Creatinine 0.7 Est GFR ( Amer) > 60 Est GFR (Non-Af Amer) > 60 Random Glucose 100 Hemoglobin A1c 5.8 Calcium 8.7 Total Bilirubin 0.6 AST 21 ALT 33 Alkaline Phosphatase 70 Total Protein 6.7 Albumin 3.8 Globulin 3.0 Albumin/Globulin Ratio 1.3 Triglycerides 103 D Cholesterol 200 H LDL Cholesterol Direct 111 HDL Cholesterol 53 Thyroxine (T4) 10.9 Total T3 1.25 L TSH 3rd Generation 1.89 Fingerstick Blood Sugar Results: 117 Review of Systems - Review of Systems All systems: reviewed and no additional remarkable complaints except (no complaints) Critical Care Progress Note - Nutrition Nutrition: Nutrition Category Date Time Status Heart Healthy Diet [DIET] Diets 10/21/17 Lunch Active Assessment/Plan - Assessment and Plan (Free Text) Assessment: 56yo F. past medical history of hypertension. Presented with CVA, status post TPA. Neuro: Alert and oriented 3, no focal motor deficits, repeat head CT shows no intracranial pathology. Patient can be started on long-term antiplatelet therapy. High-dose Lipitor. Neurology - Dr. Khan Pulm: No acute issues, breathing spontaneously on room air. CV: Hemodynamically stable. Hem: No acute issues Renal: No acute issues Endo: No acute issues GI: Low-sodium diet ID: No acute issues DVT proph - Lovenox GI proph - Protonix Code status - full code Critical Care Time spent 35 minutes Multi-disciplinary rounds were performed with house staff, nursing, speech therapy, respiratory therapy, pharmacy and nutrition with integrated input from the primary team/attending and other consulting services. The documented time is cumulative and includes review of patient data/exams/labs/chart review and examination of the patient on rounds and throughout the day; time is exclusive of any procedures or teaching time.
--- NOTE | 2017-10-23 10:25 | CP.PCM.PN ---
Subjective - Date & Time of Evaluation Date of Evaluation: 10/23/17 Time of Evaluation: 10:25 - Subjective Subjective: Ms. Nelson was seen and examined at the bedside in ICU. She is alert, oriented in all spheres. She denies any headache, dizziness, lightheadedness, nause, or vomiting. She states of feeling mild lightheaded early this morning when she attempted to ambulate to the bathroom by herself. Advise to call for assistance until physical and occupational therapist will evaluate and treat her. She is able to follow all simple commands with her left lower extremity decrease in sensation in comparison to the rest of her extremities. Latest CT scan of the head showed no acute intracranial abnormality. There was no untoward events overnight. Objective - Vital Signs/Intake and Output Vital Signs (last 24 hours): Temp Pulse Resp BP Pulse Ox 98.6 F 66 21 122/93 H 98 10/23/17 08:00 10/23/17 08:00 10/23/17 08:00 10/23/17 08:00 10/23/17 08:00 - Medications Medications: Current Medications Aspirin (Aspirin Chewable) 81 mg PO DAILY COUNTS INCLUDE 234 BEDS AT THE [facility] Last Admin: 10/23/17 08:26 Dose: 81 mg Atorvastatin Calcium (Lipitor) 80 mg PO DAILY COUNTS INCLUDE 234 BEDS AT THE [facility] Last Admin: 10/23/17 08:26 Dose: 80 mg Sodium Chloride (Sodium Chloride 0.9%) 1,000 mls @ 100 mls/hr IV .Q10H COUNTS INCLUDE 234 BEDS AT THE [facility] Last Admin: 10/21/17 11:55 Dose: 100 mls/hr - Labs Labs: 10/22/17 04:25 10/22/17 04:25 PT 10.5 Seconds (9.8-13.1) 10/21/17 11:35 INR 1.0 (0.9-1.2) 10/21/17 11:35 APTT 29.2 Seconds (25.6-37.1) 10/21/17 11:35 - Constitutional Appears: No Acute Distress - Head Exam Head Exam: NORMAL INSPECTION - Eye Exam Pupil Exam: PERRL - Neurological Exam Neurological Exam: Alert, Awake, Oriented x3 Neuro motor strength exam: Left Upper Extremity: 5, Right Upper Extremity: 5, Left Lower Extremity: 5, Right Lower Extremity: 5 Additional comments: She has no weakness, but her left lower extremity has less sensation in comparison to the rest of her extremities. Assessment and Plan (1) Ischemic stroke Assessment & Plan: Case discussed with Dr. Herrera, continue all current medical, physical, occupational, and speech therapies. Recommend MRI and MRA of the brain without contrast, echocardiogram, and blood pressure control with systolic BP not above 160 and diastolic BP not above 110 mm/hg. Status: Acute
--- NOTE | 2017-10-23 18:17 | CARD ---
APPROVED REPORT EXAM: Two-dimensional and M-mode echocardiogram with Doppler and color Doppler. Other Information Quality : GoodRhythm : NSR INDICATION CVA/TIA 2D DIMENSIONS IVSd1.04 (0.7-1.1cm)LVDd4.21 (3.9-5.9cm) LVOT Diameter2.09 (1.8-2.4cm)PWd0.89 (0.7-1.1cm) IVSs1.25 (0.8-1.2cm)LVDs3.16 (2.5-4.0cm) FS (%) 25.1 %PWs1.05 (0.8-1.2cm) LVEF (%)55.0 (>50%) M-Mode DIMENSIONS Left Atrium (MM)3.29 (2.5-4.0cm)IVSd1.00 (0.7-1.1cm) Aortic Root2.75 (2.2-3.7cm)LVDd5.35 (4.0-5.6cm) Aortic Cusp Exc.1.98 (1.5-2.0cm)PWd0.69 (0.7-1.1cm) IVSs1.34 cmFS (%) 33 % LVDs3.58 (2.0-3.8cm)PWs0.90 cm Mitral Valve MV E Epfvuwws80.6cm/sMV DECEL [id number] A Bzaflymd98.4cm/s MV JMR37wvB/A ratio1.1MVA (PHT)4.82cm2 TDI Lateral E' Peak V11.90cm/sMedial E' Peak V9.53cm/sE/Lateral E'5.3 E/Medial E'6.7 Pulmonary Valve PV Peak Eokszjjx643.2cm/s LEFT VENTRICLE The left ventricle is normal size. There is normal left ventricular wall thickness. The left ventricular function is normal. The left ventricular ejection fraction is within the normal range. There is normal LV segmental wall motion. The left ventricular diastolic function is normal. RIGHT VENTRICLE The right ventricle is normal size. There is normal right ventricular wall thickness. The right ventricular systolic function is normal. ATRIA The left atrium size is normal. The right atrium size is normal. AORTIC VALVE The aortic valve is normal in structure. No aortic regurgitation is present. There is no aortic valvular stenosis. MITRAL VALVE The mitral valve is normal in structure. There is no evidence of mitral valve prolapse. There is no mitral valve stenosis. There is no mitral valve regurgitation noted. TRICUSPID VALVE The tricuspid valve is normal in structure. There is no tricuspid valve regurgitation noted. PULMONIC VALVE The pulmonary valve is normal in structure. There is no pulmonic valvular regurgitation. GREAT VESSELS The aortic root is normal in size. The IVC was not visualized. PERICARDIAL EFFUSION The pericardium appears normal. <Conclusion> The left ventricle is normal size. There is normal left ventricular wall thickness. The left ventricular function is normal. The left ventricular ejection fraction is within the normal range. There is normal LV segmental wall motion. The left ventricular diastolic function is normal.
--- NOTE | 2017-10-23 18:51 | MRI ---
PROCEDURE: Magnetic Resonance Angiography Brain HISTORY: cva COMPARISON: None available. TECHNIQUE: 3D time of flight MR angiography of the intracranial arteries was performed. Rotating maximum intensity projection images were generated. FINDINGS: INTERNAL CAROTID ARTERIES: Unremarkable. The skull base, petrous, cavernous and supraclinoid segments are bilaterally widely patient. ANTERIOR CEREBRAL ARTERIES: A mildly hypoplastic right A1 ANGELA segment is identified. The left A1 and bilateral A2 segments are widely patent. Smaller distal branches unremarkable, as visualized. MIDDLE CEREBRAL ARTERIES: Unremarkable. M1 and M2 segments are widely patent. Perisylvian branches grossly symmetric. POSTERIOR CIRCULATION: Basilar Artery: Unremarkable. Distal Vertebral Arteries: Unremarkable. Posterior Cerebral Arteries: Unremarkable. Posterior Inferior Cerebellar Arteries: Unremarkable. ANEURYSM/ VASCULAR MALFORMATIONS: None. OTHER FINDINGS: None. IMPRESSION: Hypoplastic right A1 ANGELA segment appearing fully patent nevertheless. Otherwise unremarkable MR angiography of the brain.
--- NOTE | 2017-10-23 18:53 | MRI ---
PROCEDURE: MRI BRAIN WITHOUT CONTRAST HISTORY: cva COMPARISON: None. TECHNIQUE: Multiplanar, multisequence MR images of the brain were obtained without intravenous contrast enhancement. FINDINGS: HEMORRHAGE: None DWI: No evidence of an acute or early subacute infarction. BRAIN PARENCHYMA: Normal merino-white matter differentiation and density are appreciated throughout the cerebrum and cerebellum with the brainstem appearing unremarkable as well. There is no mass effect. There is no suspicious extra-axial fluid collection and the midline brain anatomy appears diffusely unremarkable. VENTRICLES: Unremarkable. No hydrocephalus. CRANIUM: Unremarkable. ORBITS: Grossly unremarkable. PARANASAL SINUSES/MASTOIDS: Clear VASCULAR SYSTEM: Skull base flow voids intact. OTHER FINDINGS: None. IMPRESSION: Unremarkable non contrast enhanced MRI of the brain.
--- NOTE | 2017-10-24 09:42 | CP.PCM.PN ---
Subjective - Date & Time of Evaluation Date of Evaluation: 10/24/17 Time of Evaluation: 09:41 - Subjective Subjective: Ms. Nelson was seen and examined at the bedside in ICU. She is alert, oriented in all spheres. She denies any headache, dizziness, blurred vision, diplopia, lightheadedness, nausea, or vomiting. She is able to feed herself and follow all commands. Her left side numbness is resolved. MRA of the head showed hypoplastic right A1 ANGELA segment appearing fully patent nevertheless and MRI of the brain is normal. Echocardiogram showed LVF, EF, LV segmal wall motion, ventricular diastolic function are all normal. There was no untoward events overnight. Objective - Vital Signs/Intake and Output Vital Signs (last 24 hours): Temp Pulse Resp BP Pulse Ox 97.9 F 73 16 120/79 100 10/24/17 08:00 10/24/17 09:00 10/24/17 08:00 10/24/17 09:00 10/24/17 08:00 - Medications Medications: Current Medications Aspirin (Aspirin Chewable) 81 mg PO DAILY [facility] Last Admin: 10/24/17 08:36 Dose: 81 mg Atorvastatin Calcium (Lipitor) 80 mg PO DAILY [facility] Last Admin: 10/24/17 08:36 Dose: 80 mg Sodium Chloride (Sodium Chloride 0.9%) 1,000 mls @ 100 mls/hr IV .Q10H [facility] Last Admin: 10/21/17 11:55 Dose: 100 mls/hr - Labs Labs: 10/22/17 04:25 10/22/17 04:25 PT 10.5 Seconds (9.8-13.1) 10/21/17 11:35 INR 1.0 (0.9-1.2) 10/21/17 11:35 APTT 29.2 Seconds (25.6-37.1) 10/21/17 11:35 - Constitutional Appears: No Acute Distress - Head Exam Head Exam: NORMAL INSPECTION - Neurological Exam Neurological Exam: Alert, Awake, Oriented x3 Neuro motor strength exam: Left Upper Extremity: 5, Right Upper Extremity: 5, Left Lower Extremity: 5, Right Lower Extremity: 5 Additional comments: Neurological improved from previous examination, no more focal deficits or numbness. Assessment and Plan (1) Ischemic stroke Assessment & Plan: Case discussed with Dr. Herrera, continue all current medical, physical, occupational therapies. May discharge to home with aspirin and statin, and follow up with Dr. Herrera in 2 weeks at [address] [facility] [place] [address]. Tel. number [phone]. Status: Acute
[2017-10-24 11:17] VITALS: RESP 16
[2017-10-24 12:38] VITALS: TEMP 98.4
[2017-10-24 12:58] VITALS: O2SAT 97
[2017-10-24 14:20] VITALS: BP 120/82; PULSE 73
--- NOTE | 2017-10-24 18:18 | CP.PCM.DIS ---
Provider - Provider Date of Admission: 10/21/17 12:19 Attending physician: Hubert Perdomo MD Diagnosis - Discharge Diagnosis (1) Ischemic stroke Status: Acute Priority: High (2) Received intravenous tissue plasminogen activator (tPA) in emergency department Status: Acute Priority: High (3) Hypertension Status: Chronic Priority: High Hospital Course - Lab Results Lab Results: Micro Results 10/21/17 07:44 Naris MRSA Culture (Admit) - Final MRSA NOT DETECTED Most Recent Lab Values WBC 10.6 K/uL (4.8-10.8) 10/22/17 04:25 RBC 4.09 Mil/uL (3.80-5.20) 10/22/17 04:25 Hgb 12.8 g/dL (12.0-16.0) 10/22/17 04:25 Hct 36.4 % (34.0-47.0) 10/22/17 04:25 MCV 88.9 fl (81.0-99.0) 10/22/17 04:25 MCH 31.3 pg (27.0-31.0) H 10/22/17 04:25 MCHC 35.2 g/dL (33.0-37.0) 10/22/17 04:25 RDW 13.1 % (11.5-14.5) 10/22/17 04:25 Plt Count 301 K/uL (130-400) 10/22/17 04:25 MPV 6.7 fl (7.2-11.7) L 10/21/17 11:35 Neut % (Auto) 50.4 % (50.0-75.0) 10/21/17 11:35 Lymph % (Auto) 42.4 % (20.0-40.0) H 10/21/17 11:35 [place]y % (Auto) 5.5 % (0.0-10.0) 10/21/17 11:35 Eos % (Auto) 1.3 % (0.0-4.0) 10/21/17 11:35 Baso % (Auto) 0.4 % (0.0-2.0) 10/21/17 11:35 Neut # (Auto) 4.2 K/uL (1.8-7.0) 10/21/17 11:35 Lymph # (Auto) 3.5 K/uL (1.0-4.3) 10/21/17 11:35 [place]y # (Auto) 0.5 K/uL (0.0-0.8) 10/21/17 11:35 Eos # (Auto) 0.1 K/uL (0.0-0.7) 10/21/17 11:35 Baso # (Auto) 0.0 K/uL (0.0-0.2) 10/21/17 11:35 PT 10.5 Seconds (9.8-13.1) 10/21/17 11:35 INR 1.0 (0.9-1.2) 10/21/17 11:35 APTT 29.2 Seconds (25.6-37.1) 10/21/17 11:35 D-Dimer, Quantitative 79 ng/mlDDU (0-230) 10/21/17 11:35 Sodium 146 mmol/l (132-148) 10/22/17 04:25 Potassium 3.6 MMOL/L (3.6-5.0) 10/22/17 04:25 Chloride 106 mmol/L (98-107) 10/22/17 04:25 Carbon Dioxide 27 mmol/L (22-30) 10/22/17 04:25 Anion Gap 17 (10-20) 10/22/17 04:25 BUN 20 mg/dl (7-17) H 10/22/17 04:25 Creatinine 0.7 mg/dl (0.7-1.2) 10/22/17 04:25 Est GFR ( Amer) > 60 10/22/17 04:25 Est GFR (Non-Af Amer) > 60 10/22/17 04:25 POC Glucose (mg/dL) 117 mg/dL (65-110) H 10/21/17 10:59 Random Glucose 100 mg/dL (65-105) 10/22/17 04:25 Hemoglobin A1c 5.8 % (4.2-6.5) 10/21/17 11:35 Calcium 8.7 mg/dL (8.4-10.2) 10/22/17 04:25 Total Bilirubin 0.6 mg/dl (0.2-1.3) 10/22/17 04:25 AST 21 U/L (14-36) 10/22/17 04:25 ALT 33 U/L (9-52) 10/22/17 04:25 Alkaline Phosphatase 70 U/L (38-126) 10/22/17 04:25 Troponin I < 0.0120 ng/mL (0.00-0.120) 10/21/17 11:35 Total Protein 6.7 G/DL (6.3-8.2) 10/22/17 04:25 Albumin 3.8 g/dL (3.5-5.0) 10/22/17 04:25 Globulin 3.0 gm/dL (2.2-3.9) 10/22/17 04:25 Albumin/Globulin Ratio 1.3 (1.0-2.1) 10/22/17 04:25 Triglycerides 103 mg/DL (0-149) D 10/22/17 04:25 Cholesterol 200 mg/dL (0-199) H 10/22/17 04:25 LDL Cholesterol Direct 111 mg/dL (0-129) 10/22/17 04:25 HDL Cholesterol 53 MG/DL (30-70) 10/22/17 04:25 Thyroxine (T4) 10.9 ug/dl (5.5-11.0) 10/22/17 04:25 Total T3 1.25 nmol/L (1.49-2.60) L 10/22/17 04:25 TSH 3rd Generation 1.89 mIU/ML (0.46-4.68) 10/22/17 04:25 Discharge Exam - Head Exam Head Exam: NORMAL INSPECTION Discharge Plan - Follow Up Plan Condition: SERIOUS Disposition: HOME/ ROUTINE Instructions: Stroke, Recovery After Stroke, Risk Factors for Stroke, Caring for a Loved One After a Stroke, Clot Dissolving Drugs for Heart Attack or Stroke , Stroke Rehab Information, Stroke Rehab Exercises
[2017-10-25] MEDS ORDERED: HCTZ/Losartan 12.5/50 Tab PO SCH (09:00)
== END 2017-10-24 14:57 | disposition home or self-care (01) | DRG 880 ==
LOC: H.ER 10:11 → H.ERHOLD 12:19 → H.ICU/CCU 21:30
PROVIDERS: ADMIT Internal Medicine Pulmonary Disease; ATTEND Internal Medicine Pulmonary Disease
PROC: 3E03317 Introduction of Other Thrombolytic into Peripheral Vein, Percutaneous Approach (ICD-10-PCS; principal; 2017-10-21)
PROC: F07Z9FZ Gait Training/Functional Ambulation Treatment using Assistive, Adaptive, Supportive or Protective Equipment (ICD-10-PCS; 2017-10-22)
DX: I63.8 Other cerebral infarction (principal); G83.24 Monoplegia of upper limb affecting left nondominant side; G83.14 Monoplegia of lower limb affecting left nondominant side; I10 Essential (primary) hypertension; R29.703 NIHSS score 3; K29.70 Gastritis, unspecified, without bleeding; Z87.440 Personal history of urinary (tract) infections; Z90.49 Acquired absence of other specified parts of digestive tract